=== PATIENT | female | born 1995 | race American Indian/Alaskan Native ===

== ENCOUNTER 2019-09-03 07:55 | Emergency (ER) | payer SELFPAY ==
[2019-09-03 08:01] VITALS: BP 139/84
[2019-09-03 08:34] LABS: Bilirubin,Urine NEG (Negative); Blood,Urine NEG (Negative); Color,Urine Yellow (Yellow); Mucus,Urine FEW /HPF; Protein,Urine <15 mg/dL mg/dL (Negative); Urobilinogen,Urine < 2.0 mg/dL (<2.0)
[2019-09-03 08:45] LABS: HCG Qualitative,Urine Negative (Negative)
--- NOTE | 2019-09-03 09:03 | Emergency Department Report ---
Chief Complaint: Urogenital-Female Stated Complaint: BACK PAIN Time Seen by Provider: 09/03/19 08:26 - HPI History of Present Illness: Patient is a 24-year-old Female who is presenting with some lower back discomfort for approximately a week. States this aching pain in the lumbar area diffusely. Patient states that yesterday she noticed her urine appeared cloudy. The patient denies fevers chills nausea vomiting diarrhea dysuria or urinary frequency abnormal vaginal bleeding or vaginal discharge. Patient denies any trauma. - ROS Review of Systems: All other systems are reviewed and are negative - Exam Vital Signs: Vital Signs 09/03/19 07:59 Temperature 98.5 F Pulse Rate 77 Respiratory 18 Rate Blood Pressure 139/84 O2 Sat by Pulse 99 Oximetry Physical Exam: The patient is alert and oriented 3 in no acute distress. Abdomen is soft and nontender lungs are clear to auscultation heart tones are normal. Patient has full range of motion to the lumbar spine with no point tenderness in the midline. MSE screening note: Focused history and physical exam performed. Due to findings the following was ordered: ED Medical Decision Making - Lab Data Lab Results 09/03/19 Range/Units 08:13 Urine Color Yellow (Yellow) Urine Turbidity Clear (Clear) Urine pH 5.0 (5.0-7.0) Ur Specific Meno 1.020 (1.003-1.030) Urine Protein <15 mg/dl (Negative) mg/dL Urine Glucose (UA) Neg (Negative) mg/dL Urine Ketones Neg (Negative) mg/dL Urine Blood Neg (Negative) Urine Nitrite Neg (Negative) Urine Bilirubin Neg (Negative) Urine Urobilinogen < 2.0 (<2.0) mg/dL Ur Leukocyte Esterase Neg (Negative) Urine WBC (Auto) 1.0 (0.0-6.0) /HPF Urine RBC (Auto) 2.0 (0.0-6.0) /HPF U Epithel Cells (Auto) < 1.0 (0-13.0) /HPF Urine Mucus Few /HPF Urine HCG, Qual Negative (Negative) - Medical Decision Making Urinalysis prexy tested been done. There is no evidence of a urinary tract infection or hematuria and the patient does have emergent conditions ruled out at this time. Patient was urged to continue with ibuprofen and icing her back will be discharged given resources ED Disposition for MSE Clinical Impression: Lumbar strain Qualifiers: Encounter type: initial encounter Qualified Code(s): S39.012A - Strain of muscle, fascia and tendon of lower back, initial encounter Disposition: MED SCREENING EXAM-LEFT Is pt being admited?: No Does the pt Need Aspirin: No Condition: Stable Instructions: Muscle Strain (ED) Referrals: PRIMARY CARE, [Primary Care Provider] - 3-5 Days Time of Disposition: 09:03
== END 2019-09-03 09:27 | disposition left against medical advice (07) ==
LOC: ED 07:55
DX: S39.012A Strain of muscle, fascia and tendon of lower back, initial encounter (principal); X58.XXXA Exposure to other specified factors, initial encounter; Y93.89 Activity, other specified; Y92.89 Other specified places as the place of occurrence of the external cause; Y99.8 Other external cause status
CPT/HCPCS: 81001; 81025

== ENCOUNTER 2022-06-07 22:03 | Outpatient (CLI) | payer MEDICAID ==
[2022-06-07 23:41] VITALS: BP 135/80
--- NOTE | 2022-06-08 01:24 | Ultrasound Report ---
ULTRASOUND OBSTETRIC LIMITED INDICATION / CLINICAL INFORMATION: efw,dorcas. Clinical Gestational Age (GA) in weeks, days: 36 weeks 3 days TECHNIQUE: Transabdominal. COMPARISON: None available. FINDINGS: NUMBER: Single PRESENTATION: cephalic PLACENTA: anterior and free of the os. AMNIOTIC FLUID VOLUME: normal AMNIOTIC FLUID INDEX (DORCAS) in cm (if measured): 16.0 MEASUREMENTS: - Biparietal Diameter = 9.11 cm = 37 weeks, 0 days - Head Circumference = 33.42 cm = 38 weeks, 1 days - Abdominal Circumference = 34.52 cm = 38 weeks, 3 days - Femur Length = 7.12 cm = 36 weeks, 3 days - Estimated Weight (in grams, if calculated): 3305 g - Heart Rate (beats per minute): 142 ADDITIONAL FINDINGS: None. PERCENTILE ESTIMATED WEIGHT (if calculated): 86% AVERAGE ULTRASOUND AGE (AUA) in weeks, days = 37 weeks 4 days IMPRESSION: 1. Single intrauterine with AUA of 37 weeks, 4 days 2. No significant sonographic abnormality. Signer Name: Saskia Green MD Signed: 06/08/2022 1:20 AM Workstation Name: [id number]
== END 2022-06-07 23:55 | disposition home or self-care (01) ==
LOC: TRG 22:03 → APU 22:05 → TRG 23:55
PROVIDERS: ATTEND Obstetrics & Gynecology Gynecology
DX: Z34.93 Encounter for supervision of normal pregnancy, unspecified, third trimester (principal); Z3A.37 37 weeks gestation of pregnancy
CPT/HCPCS: 76816